=== PATIENT | male | born 1945 | race Caucasian/White ===

== ENCOUNTER 2023-02-02 07:58 | Day surgery (SDC) | payer MEDICARE ==
[2023-02-02] VITALS (11 sets, daily range): BP systolic 127–150; BP diastolic 66–84; PULSE 46–75; RESP 12–16; TEMP 98.4; O2SAT 92–98
[~2023-02-02] VITALS: Ht 180.3 cm; Wt 139.4 kg
[2023-02-02] MEDS ORDERED: fentaNYL/PF 50MCG/1 ML 2ML syringe IV ONE (09:10)
[2023-02-02] MEDS ORDERED: MIDAZolam 1mg/ml 10ml vial IV ONE (09:10)
[2023-02-02] MEDS ORDERED: normal saline 1000ml 1,000 ML IV SCH (09:10)
[2023-02-02 09:15] LABS: BASOPHILS # (AUTO) 0.1 X10'3 (0-0.2); BASOPHILS % (AUTO) 1.4 % (0-1); EOSINOPHILS # (AUTO) 0.2 X10'3 (0-0.9); EOSINOPHILS % (AUTO) 2.9 % (0-6); HEMATOCRIT 39.5 % (42.0-52.0); HEMOGLOBIN 13.1 g/dl (14.0-17.9); LYMPHOCYTES # (AUTO) 2.2 X10'3 (1.1-4.8); LYMPHOCYTES % (AUTO) 31.2 % (21-51); MEAN CORPUSCULAR HEMOGLOBIN 31.8 PG (27.0-31.0); MEAN CORPUSCULAR HGB CONC 33.2 g/dL (33.0-36.5); MEAN CORPUSCULAR VOLUME 95.9 FL (78-98); MEAN PLATELET VOLUME 9.7 FL (7.4-10.4); MONOCYTES # (AUTO) 0.6 X10'3 (0-0.9); MONOCYTES % (AUTO) 8.2 % (2-12); NEUTROPHILS # (AUTO) 3.9 X10'3 (1.8-7.7); NEUTROPHILS % (AUTO) 56.3 % (42-75); PLATELET COUNT 146 X10'3 (140-440); RED BLOOD COUNT 4.11 X10'6 (4.70-6.10); RED CELL DISTRIBUTION WIDTH 15.7 % (11.5-14.5)
[2023-02-02 09:25] LABS: ALBUMIN 3.1 G/DL (3.4-5.0); ANION GAP 9 (8-16); BLOOD UREA NITROGEN 23 MG/DL (7-18); BUN/CREATININE RATIO 16.8 (10.0-20.0); CALCIUM 8.6 MG/DL (8.5-10.1); CHLORIDE 110 MMOL/L (99-107); CREATININE 1.37 MG/DL (0.60-1.10); GLUCOSE 168 MG/DL (70-104); INR 1.4 INR; MAGNESIUM 2.3 MG/DL (1.5-2.4); PROTHROMBIN TIME 15.1 SECONDS (9.0-12.0); SODIUM 143 MMOL/L (135-145); eCRCL 48 ML/MIN; eGFR 50 ML/MIN
[2023-02-02] MEDS ORDERED: AMI200T PO (10:21)
[2023-02-02] MEDS ORDERED: ROSU40TA22 PO (10:21)
[2023-02-02] MEDS ORDERED: [UNRECOGNIZED DRUG - CODE] (10:21)
[2023-02-02] MEDS ORDERED: GABA600T13 PO (10:21)
[2023-02-02] MEDS ORDERED: ALLO300T8 PO (10:21)
[2023-02-02] MEDS ORDERED: MULT-1141 PO (10:21)
[2023-02-02] MEDS ORDERED: OMEG100037 PO (10:21)
[2023-02-02] MEDS ORDERED: METF-1203 PO (10:21)
[2023-02-02] MEDS ORDERED: SAW450CA7 PO (10:21)
[2023-02-02] MEDS ORDERED: DOCU100C40 PO (10:21)
[2023-02-02] MEDS ORDERED: PIOG45TA65 PO (10:21)
[2023-02-02] MEDS ORDERED: CARV25TA2 PO (10:21)
[2023-02-02] MEDS ORDERED: PANT40TA54 PO (10:21)
[2023-02-02] MEDS ORDERED: FINA5TAB11 PO (10:21)
[2023-02-02] MEDS ORDERED: LOSA100T58 PO (10:21)
[2023-02-02] MEDS ORDERED: CANA300T PO (10:21)
== END 2023-02-02 12:30 | disposition home or self-care (01) ==
LOC: SSTAY O 07:58
PROVIDERS: ATTEND Internal Medicine Cardiovascular Disease
DX: I48.91 Unspecified atrial fibrillation (principal); I44.0 Atrioventricular block, first degree; I25.10 Atherosclerotic heart disease of native coronary artery without angina pectoris; I25.2 Old myocardial infarction; E11.9 Type 2 diabetes mellitus without complications; I10 Essential (primary) hypertension; E78.00 Pure hypercholesterolemia, unspecified; E66.9 Obesity, unspecified; Z68.39 Body mass index [BMI] 39.0-39.9, adult; Z79.84 Long term (current) use of oral hypoglycemic drugs; Z79.899 Other long term (current) drug therapy; Z87.442 Personal history of urinary calculi; Z98.890 Other specified postprocedural states
CPT/HCPCS: 36415; 80048; 82948; 83735; 85025; 85610; 92960; 93005; J2250; J3010; J7030; A4620